=== PATIENT | female | born 1985 | race American Indian/Alaskan Native ===

== ENCOUNTER 2019-03-06 08:42 | Emergency (ER) | payer SELFPAY ==
[2019-03-06] MEDS ORDERED: ASPIRIN 325 MG TAB PO ONE (08:50)
--- NOTE | 2019-03-06 09:13 | XRay Report ---
CHEST 1 VIEW INDICATION: Chest Pain. COMPARISON: None. FINDINGS: Support devices: None. Heart: Within normal limits. Lungs/Pleura: No acute air space or interstitial disease. Additional findings: None. IMPRESSION: No acute abnormality. Signer Name: Junito Rangel MD Signed: 03/06/2019 9:09 AM Workstation Name: [id number]
[2019-03-06 09:55] LABS: BUN/Creatinine Ratio 19; Blood Urea Nitrogen 15 mg/dL (7-17); Calcium 8.4 mg/dL (8.4-10.2); Hemolysis Index 3
[2019-03-06] MEDS ORDERED: MORPHINE 4 MG/1 ML INJ IV ONE ×2 (10:01→12:24)
[2019-03-06] MEDS ORDERED: ONDANSETRON 4 MG/2 ML INJ IV ONE (10:01)
[2019-03-06 10:06] LABS: Basophils % (Auto) 0.5 % (0.0-1.8); Eosinophils % (Auto) 0.8 % (0.0-4.3); Hematocrit 37.1 % (30.3-42.9); Hemoglobin 12.2 gm/dl (10.1-14.3); Lymphocytes # (Auto) 1.8 K/mm3 (1.2-5.4); Lymphocytes % (Auto) 33.6 % (13.4-35.0); Mean Corpuscular HGB Conc 33 % (30-34); Mean Corpuscular Volume 84 fl (79-97); Monocytes # (Auto) 0.4 K/mm3 (0.0-0.8); Monocytes % (Auto) 7.6 % (0.0-7.3); Red Blood Count 4.44 M/mm3 (3.65-5.03); Red Cell Distribution Width 15.5 % (13.2-15.2)
--- NOTE | 2019-03-06 10:10 | Emergency Department Report ---
ED Chest Pain HPI - General Chief Complaint: Chest Pain Stated Complaint: LEFT SIDE SHOULDER PAIN Time Seen by Provider: 03/06/19 09:35 Source: patient Mode of arrival: Ambulatory Limitations: No Limitations - History of Present Illness Initial Comments: 33-year-old female presents to the emergency department with a complaint of some left upper chest pain, towards the shoulder, but has been going on since last night. The pain worsens with movement of her left arm and with palpation. However the patient says that she has a history of blood clots and says "this feels like a blood clot." She denies any shortness of breath, nausea, vomiting, back pain or diaphoresis. She has a past medical history of nephrotic syndrome, "a blood clot in each of my kidneys", "a blood clot near my lungs", "a hole in my kidney that leaks urine", and hypertension. The patient takes steroids, Lasix, a blood thinner that "starts with a T", and hypertensive medications. However, the patient is unaware of the names of most of her medications. She just moved here from [place] and does not have any local physicians. She tried some Tylenol PM for her symptoms last night without much relief. - Related Data Allergies Allergy/AdvReac Type Severity Reaction Status Date / Time No Known Allergies Allergy Unverified 03/06/19 08:43 Heart Score - HEART Score History: Slightly suspicious EKG: Normal Age: < 45 Risk factors: 1-2 risk factors Troponin: < normal limit HEART Score: 1 - Critical Actions Critical Actions: 0-3 pts:0.9-1.7%risk of adverse cardiac event.Candidate for discharge ED Review of Systems ROS: Stated complaint: LEFT SIDE SHOULDER PAIN Other details as noted in HPI Comment: All other systems reviewed and negative Constitutional: denies: chills, fever Eyes: denies: eye pain, vision change ENT: denies: ear pain, throat pain Respiratory: denies: cough, shortness of breath Cardiovascular: chest pain. denies: palpitations Gastrointestinal: denies: abdominal pain, vomiting Genitourinary: denies: dysuria, discharge Musculoskeletal: arthralgia. denies: back pain Skin: denies: rash, lesions Neurological: denies: headache, weakness, numbness, paresthesias ED Past Medical Hx - Social History Smoking Status: Current Every Day Smoker Substance Use Type: Marijuana ED Physical Exam - General Limitations: No Limitations - Other Other exam information: GENERAL: The patient is well-developed well-nourished. HEENT: Normocephalic. Atraumatic. Patient has moist mucous membranes. EYES: Extraocular motions are intact. NECK: Supple. Trachea is midline CHEST/LUNGS: Clear to auscultation. There is reproducible left upper chest pain to palpation and with movement of the left arm. No crepitus or deformity. There is no respiratory distress noted. HEART/CARDIOVASCULAR: Regular. There is no tachycardia. ABDOMEN: Abdomen is soft, nontender. Patient has normal bowel sounds. There is no abdominal distention. SKIN: Skin is warm and dry. NEURO: The patient is awake, alert, and oriented. The patient is cooperative. The patient has no focal neurologic deficits. Normal speech. MUSCULOSKELETAL: There is no tenderness or deformity. There is no evidence of acute injury. ED Course Vital Signs 03/06/19 03/06/19 03/06/19 08:49 11:43 11:45 Temperature 98.4 F Pulse Rate 83 84 Respiratory 18 19 18 Rate Blood Pressure 203/86 Blood Pressure 140/96 [Right] O2 Sat by Pulse 98 100 100 Oximetry MAME score - Mame Score Age > 65: (0) No Aspirin use within the Past 7 Days: (0) No 3 or more CAD Risk Factors: (0) No 2 or more Angina events in past 24 hrs: (1) Yes (if pain is considered angina) Known CAD with more than 50% Stenosis: (0) No Elevated Cardiac Markers: (0) No ST Deviation Greater than 0.5mm: (0) No MAME Score: 1 ED Medical Decision Making - Lab Data Result diagrams: 03/06/19 09:01 03/06/19 09:01 - EKG Data -: EKG Interpreted by Me EKG shows normal: sinus rhythm, axis, intervals, QRS complexes (LVH), ST-T waves Rate: normal - EKG Data When compared to previous EKG there are: previous EKG unavailable Interpretation: LVH - Radiology Data Radiology results: report reviewed, image reviewed interpreted by me: Chest x-ray does not show any pneumonia, pneumothorax, focal consolidation, pleural effusions, or any other acute process. CT angio chest INDICATION / CLINICAL INFORMATION: CP, elevated dimer. TECHNIQUE: Axial CT images were obtained after injection of Omnipaque 350, 100 cc IV contrast using CTA protocol. 3 plane MIP / 3D reconstructions were produced. All CT scans at this location are performed using CT dose reduction for ALARA by means of automated exposure control. COMPARISON: Chest x-ray 03/06/2019 FINDINGS: The lungs contain no mass, significant infiltrate or pleural fluid. There is mild dependent atelectasis/scarring. No mediastinal mass or adenopathy. Imaging of the upper abdomen demonstrates partially imaged prominent kidneys. Negative for aneurysm, dissection or pulmonary embolus. IMPRESSION: 1. Negative for pulmonary unless or pneumonia. 2. Basilar atelectasis versus scarring. 3. Partially imaged prominent kidneys which demonstrate no suspicious abnormality. - Medical Decision Making This patient comes in with some pain to the left upper chest that has been going on since last night. EKG was done that does not show any signs of ST elevation [place] or ischemia. Chest x-ray does not show any pleural effusions, pneumothorax, focal consolidation, pneumonia, or any other acute process. The patient's labs were mostly unremarkable including negative troponins 2 except for an elevated d-dimer level. For this reason, the patient had a CT angiography of the chest that did not show any signs of pulmonary embolus, dissection or any other acute process. Patient was given a dose of pain medication during her stay and the pain has greatly improved. She is low on the MAME score and heart score, the pain is reproducible to palpation and with movement of the left upper extremity, and overall this appears less suspicious for a cardiac etiology. The patient says that she is on some type of anticoagulation and she has been instructed to continue with this. Her vital signs stable throughout her ED course. She was given a referral for cardiology and primary care. She will return to the ER with any worsening of her symptoms or any acute distress. - Differential Diagnosis [place], PE, costochondritis, pneumonia Critical Care Time: No Critical care attestation.: If time is entered above; I have spent that time in minutes in the direct care of this critically ill patient, excluding procedure time. ED Disposition Clinical Impression: Atypical chest pain, Anticoagulant long-term use, History of nephrotic syndrome Disposition: DC-01 TO HOME OR SELFCARE Is pt being admited?: No Condition: Stable Instructions: Noncardiac Chest Pain (ED) Additional Instructions: Please follow-up with a primary care physician in the next few days. I am giving you a referral for a local security incident response engineer, Dr. Marcial, to follow up regarding your chest pains. Continue taking your anticoagulation/blood thinners. Return to the emergency Department with any worsening of your symptoms or any acute distress. Referrals: PRIMARY CARE, [Primary Care Provider] - 3-5 Days DONTE MARCIAL MD [Staff Physician] - 3-5 Days DIA VELÁSQUEZ MD [Staff Physician] - 3-5 Days [facility] [Outside] - 3-5 Days Time of Disposition: 15:28
[2019-03-06 10:17] LABS: Platelet Count 273 K/mm3 (140-440)
[2019-03-06 11:45] VITALS: BP 140/96
--- NOTE | 2019-03-06 14:54 | Cat Scan Report ---
CT angio chest INDICATION / CLINICAL INFORMATION: CP, elevated dimer. TECHNIQUE: Axial CT images were obtained after injection of Omnipaque 350, 100 cc IV contrast using CTA protocol . 3 plane MIP / 3D reconstructions were produced. All CT scans at this location are performed using C T dose reduction for ALARA by means of automated exposure control. COMPARISON: Chest x-ray 03/06/2019 FINDINGS: The lungs contain no mass, significant infiltrate or pleural fluid. There is mild dependent atelectas is/scarring. No mediastinal mass or adenopathy. Imaging of the upper abdomen demonstrates partially imaged promine nt kidneys. Negative for aneurysm, dissection or pulmonary embolus. IMPRESSION: 1. Negative for pulmonary unless or pneumonia. 2. Basilar atelectasis versus scarring. 3. Partially imaged prominent kidneys which demonstrate no suspicious abnormality. Signer Name: Junito Rangel MD Signed: 03/06/2019 2:50 PM Workstation Name: [id number]
== END 2019-03-06 16:03 | disposition home or self-care (01) ==
LOC: ED 08:42
DX: R07.89 Other chest pain (principal); F17.200 Nicotine dependence, unspecified, uncomplicated; F12.10 Cannabis abuse, uncomplicated
CPT/HCPCS: 36415; 71045; 71275; 80048; 84484; 85025; 85379; 93005; 93010; 96374; 96375; 96376; 99285; J2270; J2405; Q9967